=== PATIENT | male | born 1945 | race Native Hawaiian/Other Pacific Islander ===

== ENCOUNTER 2016-12-13 11:27 | Outpatient (CLI) | payer OTHER | END 2016-12-13 23:36 | disposition home or self-care (01) | LOC: RAD 11:27 | DX: M54.5 Low back pain (principal); M25.561 Pain in right knee; M25.562 Pain in left knee ==

== ENCOUNTER 2017-06-14 09:51 | Outpatient (CLI) | payer OTHER | END 2017-06-14 11:00 | disposition home or self-care (01) | LOC: MRI 09:51 | DX: M54.5 Low back pain (principal) ==

== ENCOUNTER 2018-04-19 11:08 | Outpatient (CLI) | payer OTHER | END 2018-04-19 20:08 | disposition home or self-care (01) | LOC: RAD 11:08 | DX: R22.2 Localized swelling, mass and lump, trunk (principal) ==

== ENCOUNTER 2018-06-18 08:27 | Outpatient (CLI) | payer OTHER | END 2018-06-18 21:58 | disposition home or self-care (01) | LOC: CT 08:27 | DX: R91.8 Other nonspecific abnormal finding of lung field (principal) | CPT/HCPCS: 36415; 82565; 84520; Q9963 ==

== ENCOUNTER 2019-08-20 12:49 | Outpatient (CLI) | payer OTHER | END 2019-08-20 23:29 | disposition home or self-care (01) | LOC: CT 12:49 | DX: R91.8 Other nonspecific abnormal finding of lung field (principal) | CPT/HCPCS: 36415; 82565; 84520; Q9963 ==

== ENCOUNTER 2020-10-08 14:57 | Outpatient (CLI) | payer OTHER | END 2020-10-08 19:08 | disposition home or self-care (01) | LOC: RAD 14:57 | PROVIDERS: ATTEND Nurse Practitioner Family | DX: R91.8 Other nonspecific abnormal finding of lung field (principal); Z87.09 Personal history of other diseases of the respiratory system ==

== ENCOUNTER 2020-10-19 11:46 | Outpatient (CLI) | payer OTHER | END 2020-10-19 22:12 | disposition home or self-care (01) | LOC: RAD 11:46 | PROVIDERS: ATTEND Nurse Practitioner Family | DX: J18.0 Bronchopneumonia, unspecified organism (principal) ==

== ENCOUNTER 2020-12-07 13:48 | Outpatient (CLI) | payer OTHER | END 2020-12-07 19:26 | disposition home or self-care (01) | LOC: CT 13:48 | PROVIDERS: ATTEND Nurse Practitioner Family | DX: R91.8 Other nonspecific abnormal finding of lung field (principal); Z87.09 Personal history of other diseases of the respiratory system | CPT/HCPCS: 36415; 82565; 84520; Q9963 ==

== ENCOUNTER 2021-03-19 13:20 | Outpatient (CLI) | payer OTHER | END 2021-03-19 21:50 | disposition home or self-care (01) | LOC: RAD 13:20 | PROVIDERS: ATTEND Nurse Practitioner Family | DX: R53.83 Other fatigue (principal); R06.02 Shortness of breath; J44.9 Chronic obstructive pulmonary disease, unspecified ==

== ENCOUNTER 2021-05-05 08:57 | Outpatient (CLI) | payer OTHER | END 2021-05-05 22:18 | disposition home or self-care (01) | LOC: MRI 08:57 | PROVIDERS: ATTEND Nurse Practitioner Family | DX: N17.9 Acute kidney failure, unspecified (principal); R97.8 Other abnormal tumor markers; R10.12 Left upper quadrant pain; R10.11 Right upper quadrant pain ==

== ENCOUNTER 2021-06-17 05:40 | Emergency (ER) | payer OTHER ==
[~2021-06-17] VITALS: Ht 182.9 cm; Wt 81.6 kg
[2021-06-17 05:50] VITALS: TEMP 96.6
[2021-06-17 06:20] LABS: PLATELET COUNT 216 K/uL (142-355)
[2021-06-17 06:54] LABS: POTASSIUM 4.7 mmol/L (3.6-5.2); SODIUM 141 mmol/L (136-145)
[2021-06-17] MEDS ORDERED: EUTHYROX75 MCG PO (11:13)
[2021-06-17] MEDS ORDERED: HYDR10TA47A PO (11:13)
[2021-06-17] MEDS ORDERED: FENOFIBRATE54 MG PO (11:14)
[2021-06-17] MEDS ORDERED: PANTOPRAZOLE 40MG TA PO (11:14)
[2021-06-17] MEDS ORDERED: XYZAL ALLERGY 245 MG PO (11:15)
[2021-06-17] MEDS ORDERED: EC-NAPROXEN500 MG PO (11:15)
[2021-06-17] MEDS ORDERED: ALBUTEROL0.083 % INH (11:16)
[2021-06-17 11:52] VITALS: BP 127/68
== END 2021-06-17 11:52 | disposition still patient (30) ==
LOC: ED 06:00
PROVIDERS: Family Medicine
DX: J44.1 Chronic obstructive pulmonary disease with (acute) exacerbation (principal); J18.9 Pneumonia, unspecified organism; Z20.822 Contact with and (suspected) exposure to COVID-19; F17.210 Nicotine dependence, cigarettes, uncomplicated
CPT/HCPCS: 36415; 36600; 80053; 82553; 82805; 83605; 83880; 84484; 85027; 85379; 87040; 87635; 93005; 94664; 96365; 96375; 96376; 99284; J0696; J2930; U0003

== ENCOUNTER 2022-03-09 21:45 | Inpatient (IN) | payer OTHER ==
[~2022-03-09] VITALS: Ht 182.9 cm; Wt 84.5 kg
[2022-03-09 21:45] VITALS: BP 147/79; TEMP 97.9
[~2022-03-09 21:45] MED LIST: ALBUTEROL0.083 % INH; EC-NAPROXEN500 MG PO; EUTHYROX75 MCG PO; FENOFIBRATE54 MG PO; HYDR10TA47A PO; PANTOPRAZOLE 40MG TA PO; XYZAL ALLERGY 245 MG PO
[2022-03-09 21:50] VITALS: BP 147/79; TEMP 97.9
[2022-03-09 22:11] VITALS: BP 133/74
[2022-03-09 22:23] LABS: PLATELET COUNT 270 K/uL (142-355)
[2022-03-09 22:41] LABS: POTASSIUM 3.8 mmol/L (3.6-5.2)
[2022-03-09 22:45] VITALS: BP 116/61
[2022-03-09 22:48] LABS: PARTIAL THROMBOPLASTIN TIME 29.2 SECONDS (24.5-33.6)
[2022-03-09 23:30] VITALS: BP 123/67
[2022-03-10] VITALS (8 sets, daily range): BP systolic 110–153; BP diastolic 54–79; TEMP 97.7–98.9; Ht 182.9 cm; Wt 84.5 kg
[2022-03-10] MEDS ORDERED: ALPR0.5T24 PO (11:40)
[2022-03-11] VITALS: BP 139/64; TEMP 97.7
[2022-03-11 04:00] VITALS: BP 110/44; TEMP 97.9
[2022-03-11 05:10] LABS: PLATELET COUNT 183 K/uL (142-355)
[2022-03-11 05:38] LABS: POTASSIUM 4.1 mmol/L (3.6-5.2)
[2022-03-11 08:00] VITALS: BP 128/66; TEMP 98
[2022-03-11 11:57] VITALS: BP 131/69; TEMP 98.1
== END 2022-03-11 15:40 | disposition home or self-care (01) | DRG 192 ==
LOC: ED 21:45 → MED/SURG 23:20
PROVIDERS: ADMIT Hospitalist; ATTEND Internal Medicine
DX: J44.1 Chronic obstructive pulmonary disease with (acute) exacerbation (principal); E03.8 Other specified hypothyroidism; N40.0 Benign prostatic hyperplasia without lower urinary tract symptoms; K21.9 Gastro-esophageal reflux disease without esophagitis; E78.49 Other hyperlipidemia; G89.4 Chronic pain syndrome; F32.89 Other specified depressive episodes; Z99.81 Dependence on supplemental oxygen; F03.90 Unspecified dementia, unspecified severity, without behavioral disturbance, psychotic disturbance, mood disturbance, and anxiety
CPT/HCPCS: 36415; 36600; 80048; 80053; 82550; 82805; 83605; 83880; 84484; 85027; 85610; 85730; 87040; 87070; 87205; 87635; 87651; 90686; 93005; 94640; 94664; 94760; 96365; 96372; 96375; 99285; J1650; J1940; J1956; J2920; J3490; U0003

== ENCOUNTER 2023-01-24 14:31 | Outpatient (CLI) | payer OTHER ==
[~2023-01-24 14:31] MED LIST changes: +ALPR0.5T24 PO
== END 2023-01-24 21:25 | disposition home or self-care (01) ==
LOC: RAD 14:31
PROVIDERS: ATTEND Internal Medicine Sleep Medicine
DX: R06.09 Other forms of dyspnea (principal)